=== PATIENT | female | born 1955 | race Caucasian/White ===

== ENCOUNTER → 2017-01-02 | Outpatient (CLI) | payer MEDICAID ==
[2017-01-02 07:10] LABS: CH 29.4; HCT 42.8 % (34.0-46.0); HDW 2.48; HGB 13.7 gm/dL (11.4-16.0); MCH 28.7 pg (25.0-35.0); MCHC 32.1 g/dL (31.0-37.0); MCV 89.5 fL (80.0-100.0); Mean Platelet Volume 7.9; RBC 4.78 m/uL (3.80-5.40); RDW 13.8 % (11.5-15.5); WBC 5.3 k/uL (3.8-10.6)
[2017-01-02 08:00] LABS: ALT 53 U/L (9-52); AST 36 U/L (14-36); Alkaline Phosphatase 70 U/L (38-126); Anion Gap 7 mmol/L; Blood Urea Nitrogen 15 mg/dL (7-17); Calcium 9.7 mg/dL (8.4-10.2); Carbon Dioxide 30 mmol/L (22-30); Chloride 104 mmol/L (98-107); Cholesterol 178 mg/dL (<200); Glucose 92 mg/dL (74-99); HDL Cholesterol 47 mg/dL (40-60); Non-African American GFR(MDRD) >60 (>60 ml/min/1.73 sqM); Potassium 4.6 mmol/L (3.5-5.1); Sodium 141 mmol/L (137-145); Total Protein 6.6 g/dL (6.3-8.2); Uric Acid 6.8 mg/dL (3.7-7.4)
[2017-01-02 10:26] LABS: Erythrocyte Sedimentation Rate 8 mm/hr (0-20)
== END | disposition home or self-care (01) ==
LOC: LABWHC1 06:47
PROVIDERS: ATTEND Internal Medicine
DX: I10 Essential (primary) hypertension (principal)
CPT/HCPCS: 36415; 80053; 80061; 82306; 84443; 84550; 85027; 85652

== ENCOUNTER 2018-08-15 09:05 | Emergency (ER) | payer MEDICAID ==
--- NOTE | 2018-08-15 09:36 | ED ---
General Adult HPI - General Chief complaint: Extremity Injury, Lower Stated complaint: Fall, ankle injury Time Seen by Provider: 08/15/18 09:25 Source: patient, RN notes reviewed, old records reviewed Mode of arrival: ambulatory Limitations: no limitations - History of Present Illness Initial comments: 63-year-old female past medical history of hypertension presented for evaluation of left ankle injury. Patient states she slipped 3 days prior injuring her left ankle. No other associated trauma. She slipped on dog urine. She has had basically no pain, she has had swelling and bruising of the left ankle and was encouraged by her coworkers to present for evaluation. - Related Data Home Medications Medication Instructions Recorded Confirmed Atorvastatin Calcium [Lipitor] 10 mg PO DAILY 08/15/18 08/15/18 Metoprolol Tartrate [Lopressor] 25 mg PO BID 08/15/18 08/15/18 Allergies Allergy/AdvReac Type Severity Reaction Status Date / Time No Known Allergies Allergy Verified 08/15/18 10:00 Review of Systems ROS Statement: Those systems with pertinent positive or pertinent negative responses have been documented in the HPI. ROS Other: All systems not noted in ROS Statement are negative. Past Medical History Past Medical History: Hyperlipidemia, Hypertension History of Any Multi-Drug Resistant Organisms: None Reported Past Surgical History: Tonsillectomy Additional Past Surgical History / Comment(s): left cyst removed from breast Past Psychological History: No Psychological Hx Reported Smoking Status: Former smoker Past Alcohol Use History: None Reported Past Drug Use History: None Reported General Exam Limitations: no limitations General appearance: alert, in no apparent distress Head exam: Present: atraumatic, normocephalic Eye exam: Present: normal appearance, PERRL ENT exam: Present: normal exam Neck exam: Present: normal inspection. Absent: tenderness, meningismus Respiratory exam: Present: normal lung sounds bilaterally. Absent: respiratory distress, wheezes Cardiovascular Exam: Present: regular rate, normal rhythm GI/Abdominal exam: Present: soft. Absent: distended, tenderness, guarding Extremities exam: Present: pedal edema (Left lower extremity: Ecchymosis on the anterior left ankle, there is swelling bilaterally both medial and lateral malleolus. She has swelling in the calf to the level of the knee compared to the right lower extremity.), joint swelling, other Course Vital Signs 08/15/18 09:19 Temperature 98.2 F Pulse Rate 75 Respiratory 16 Rate Blood Pressure 144/76 O2 Sat by Pulse 98 Oximetry Procedures - Orthopedic Splinting/Casting Injury #1 Side: left Upper Extremity Immobilizer: Vikas wrap Lower Extremity Injury Location: ankle Medical Decision Making - Medical Decision Making 63-year-old female with three-day history of swelling in the left ankle status post mechanical fall. On exam there is minimal tenderness, good range of motion. There is ecchymosis and swelling throughout the ankle. She does have swelling from the ankle to the knee. Ultrasound is performed to evaluate for DVT. This is negative. X-ray is negative for fracture dislocation, there is soft tissue swelling consistent with exam. She is placed in an Vikas wrap. She will elevate the extremity, apply ice, take Motrin for pain. Disposition Clinical Impression: Ankle sprain and strain Disposition: HOME SELF-CARE Instructions (If sedation given, give patient instructions): Ankle Sprain (ED) Additional Instructions: Please elevated extremity as much as possible, apply ice, take Tylenol or Motrin if you develop pain. Is patient prescribed a controlled substance at d/c from ED?: No Referrals: Levi Tatum MD [Primary Care Provider] - 1-2 days Time of Disposition: 10:57
--- NOTE | 2018-08-15 10:12 | XR ---
EXAMINATION TYPE: XR ankle complete LT , 3 VIEWS DATE OF EXAM ORDERED: 08/15/2018 HISTORY: Pain following trauma. COMPARISON: None. FINDINGS: There is moderate soft tissue swelling about the ankle. No fracture or dislocation is seen . No joint effusion is seen. IMPRESSION: 1. NO ACUTE OSSEOUS LESION. 2. SOFT TISSUE SWELLING.
--- NOTE | 2018-08-15 10:54 | US ---
EXAMINATION TYPE: US venous doppler duplex LE LT DATE OF EXAM: 08/15/2018 10:48 AM COMPARISON: NONE CLINICAL HISTORY: Pain. Bruising and swelling at ankle. Patient states slipping on friday and [place] ting herself. No hx of blood clots. No blood thinners. Patient states she feels it is getting bett er. SIDE PERFORMED: Left TECHNIQUE: The lower extremity deep venous system is examined utilizing real time linear array sonog durga with graded compression, doppler sonography and color-flow sonography. VESSELS IMAGED: External Iliac Vein (EIV) Common Femoral Vein Deep Femoral Vein Greater Saphenous Vein * Femoral Vein Popliteal Vein Small Saphenous Vein * Proximal Calf Veins (* superficial vessels) Left Leg: Negative for DVT No popliteal fossa lesion is seen. IMPRESSION: THIS EXAMINATION IS NEGATIVE FOR DVT WITHIN THE LEFT LEG.
[2018-08-15 11:21] VITALS: BP 156/76; PULSE 76; RESP 20; TEMP 97.7
== END 2018-08-15 11:29 | disposition home or self-care (01) ==
LOC: EC 09:05
DX: S93.402A Sprain of unspecified ligament of left ankle, initial encounter (principal); S96.912A Strain of unspecified muscle and tendon at ankle and foot level, left foot, initial encounter; I10 Essential (primary) hypertension; E78.5 Hyperlipidemia, unspecified; Z79.899 Other long term (current) drug therapy; Z87.891 Personal history of nicotine dependence; W01.0XXA Fall on same level from slipping, tripping and stumbling without subsequent striking against object, initial encounter
CPT/HCPCS: 99284

== ENCOUNTER → 2019-02-19 | Outpatient (CLI) | payer MEDICAID ==
--- NOTE | 2019-02-23 13:26 | MM ---
Reason for exam: screening (asymptomatic). Last mammogram was performed 3 years ago. History: Patient is postmenopausal. Benign right US cyst aspiration of the right breast, February 07, 2010. Benign US left guided VAD of the left breast, February 07, 2010. Physical Findings: A clinical breast exam by your physician is recommended on an annual basis and results should be correlated with mammographic findings. MG Screening Mammo w CAD Bilateral CC and MLO view(s) were taken. Prior study comparison: February 09, 2016, left breast MG work up mamm w CAD LT. January 31, 2016, bilateral MG screening mammo w CAD. The breast tissue is heterogeneously dense. This may lower the sensitivity of mammography. Previous mammotome biopsy in the right and left breast. There is chronic nodularity bilaterally. No significant changes when compared with prior studies. ASSESSMENT: Benign, BI-RAD 2 RECOMMENDATION: Routine screening mammogram of both breasts in 1 year.
== END | disposition home or self-care (01) ==
LOC: RADMAMWWP 14:32
PROVIDERS: ATTEND Internal Medicine
DX: Z12.31 Encounter for screening mammogram for malignant neoplasm of breast (principal)
CPT/HCPCS: 77067

== ENCOUNTER → 2020-04-28 | Outpatient (CLI) | payer MEDICAID ==
--- NOTE | 2020-05-01 11:39 | MM ---
Reason for exam: screening (asymptomatic). Last mammogram was performed 1 year and 2 months ago. History: Patient is postmenopausal. Benign right US cyst aspiration of the right breast, February 07, 2010. Benign US left guided VAD of the left breast, February 07, 2010. Physical Findings: A clinical breast exam by your physician is recommended on an annual basis and results should be correlated with mammographic findings. MG Screening Mammo w CAD Bilateral CC and MLO view(s) were taken. Prior study comparison: February 19, 2019, bilateral MG screening mammo w CAD. February 09, 2016, left breast MG work up mamm w CAD LT. The breast tissue is heterogeneously dense. This may lower the sensitivity of mammography. Previous mammotome biopsy in the right and left breast. There is chronic nodularity bilaterally. No significant changes when compared with prior studies. ASSESSMENT: Benign, BI-RAD 2 RECOMMENDATION: Routine screening mammogram of both breasts in 1 year.
== END | disposition home or self-care (01) ==
LOC: RADMAMWWP 09:16
PROVIDERS: ATTEND Internal Medicine
DX: Z12.31 Encounter for screening mammogram for malignant neoplasm of breast (principal)
CPT/HCPCS: 77067

== ENCOUNTER → 2022-12-17 | Outpatient (CLI) | payer MEDICARE ==
--- NOTE | 2022-12-18 08:34 | MM ---
Reason for Exam: Screening (asymptomatic). Last mammogram was performed 2 year(s) and 7 month(s) ago. Patient History: Menarche at age 9. First Full-Term at age 17. Postmenopausal. 02/07/2010, Benign Core Biopsy on the left side. 02/07/2010, Benign Cyst Aspiration on the right side. Risk Values: Tegan 5 year model risk: 1.6%. NCI Lifetime model risk: 5.0%. Prior Study Comparison: 02/09/2016 Left Diagnostic Mammogram, [facility]. 02/19/2019 Bilateral Screening Mammogram, [facility]. 04/28/2020 Bilateral Screening Mammogram, [facility]. Tissue Density: The breast tissue is heterogeneously dense. This may lower the sensitivity of mammography. Findings: Analyzed By CAD. Right: Enlarging mass right upper quadrant measuring 17 x 15 mm on the MLO view posterior depth approximately 10 cm from the nipple there is a is adjacent right breast biopsy clip. Left: There is no suspicious group of microcalcifications or new suspicious mass. Overall Assessment: Incomplete: need additional imaging evaluation, BI-RAD 0 Management: Diagnostic Breast Ultrasound of the right breast. Ultrasound imaging of the right upper outer quadrant. [facility] will attempt to contact patient to return for supplemental views and ultrasound if indicated. Patient should continue monthly self-breast exams. A clinical breast exam by your physician is recommended on an annual basis. This exam should not preclude additional follow-up of suspicious palpable abnormalities. Note on Tegan scores and lifetime risk: 1. A Tegan score greater than 3% is considered moderate risk. If this is the case, consider specialist referral to assess eligibility for a risk reducing agent. 2. If overall lifetime risk for the development of breast cancer is 20% or higher, the patient may qualify for future screening with alternating mammogram and breast MRI. Electronically signed and approved by: Evan Hummel DO
== END | disposition home or self-care (01) ==
LOC: RADMAMWWP 07:40
PROVIDERS: ATTEND Internal Medicine
DX: Z12.31 Encounter for screening mammogram for malignant neoplasm of breast (principal); Z78.0 Asymptomatic menopausal state
CPT/HCPCS: 77067

== ENCOUNTER → 2022-12-23 | Outpatient (CLI) | payer MEDICARE ==
--- NOTE | 2022-12-23 09:46 | USB ---
Reason for Exam: Additional evaluation requested from abnormal screening. Patient History: Menarche at age 9. First Full-Term at age 17. Postmenopausal. 02/07/2010, Benign Core Biopsy on the left side. 02/07/2010, Benign Cyst Aspiration on the right side. Risk Values: Tegan 5 year model risk: 1.6%. NCI Lifetime model risk: 5.0%. Technique: Method: Targeted. Prior Study Comparison: 02/19/2019 Bilateral Screening Mammogram, [facility]. 04/28/2020 Bilateral Screening Mammogram, [facility]. 12/17/2022 Bilateral MG screening mammo w CAD, [facility]. Findings: The upper outer quadrant of the right breast, the axilla of the right breast and the retroareolar of the right breast were scanned. There is a 1.7 x 0.7 x 1.7 cm hypoechoic area 10:00 position 10 cm from nipple. This appears to correspond to the mammographic findings.. Overall Assessment: Probably benign, BI-RAD 3 Management: Diagnostic Breast Ultrasound of the right breast in 6 months. A clinical breast exam by your physician is recommended on an annual basis and results should be correlated with mammographic findings. This exam should not preclude additional follow-up of suspicious palpable abnormalities. Results were given to the patient verbally at the time of exam. Electronically signed and approved by: Umesh Monsivais D.O. Radiologis
== END | disposition home or self-care (01) ==
LOC: RADUSWWP 08:47
PROVIDERS: ATTEND Internal Medicine
DX: R92.8 Other abnormal and inconclusive findings on diagnostic imaging of breast (principal); Z78.0 Asymptomatic menopausal state

== ENCOUNTER → 2024-06-25 | Outpatient (CLI) | payer MEDICARE ==
--- NOTE | 2024-06-25 11:42 | MM ---
Reason for Exam: Follow-up at short interval from prior study. Last mammogram was performed 1 year(s) and 7 month(s) ago. Patient History: Menarche at age 9. First Full-Term at age 17. Postmenopausal. 02/07/2010, Benign Core Biopsy on the left side. 02/07/2010, Benign Cyst Aspiration on the right side. Risk Values: Tegan 5 year model risk: 1.6%. NCI Lifetime model risk: 4.5%. Prior Study Comparison: 02/09/2016 Left Diagnostic Mammogram, [facility]. 02/19/2019 Bilateral Screening Mammogram, [facility]. 04/28/2020 Bilateral Screening Mammogram, [facility]. 12/17/2022 Bilateral MG screening mammo w CAD, [facility]. Tissue Density: The breasts are heterogeneously dense, which may obscure small masses. Findings: Analyzed By CAD. Right breast clip present. Asymmetry right upper outer quadrant appears smaller on today's exam located posterior to the right breast biopsy clip in the lateral aspect posterior depth approximately 12.2 cm from the nipple Left breast biopsy clip present. New or worrisome calcifications. No new masses identified. Overall Assessment: Incomplete: need additional imaging evaluation, BI-RAD 0 Management: Diagnostic Breast Ultrasound of the right breast. Results were given to the patient verbally at the time of exam. Patient should continue monthly self-breast exams. A clinical breast exam by your physician is recommended on an annual basis. This exam should not preclude additional follow-up of suspicious palpable abnormalities. Note on Tegan scores and lifetime risk: 1. A Tegan score greater than 3% is considered moderate risk. If this is the case, consider specialist referral to assess eligibility for a risk reducing agent. 2. If overall lifetime risk for the development of breast cancer is 20% or higher, the patient may qualify for future screening with alternating mammogram and breast MRI. [facility], , 06/25/2024 11:39 AM. Electronically signed and approved by: Evan Hummel DO
--- NOTE | 2024-06-25 11:59 | USB ---
Reason for Exam: Follow-up at short interval from prior study. Patient History: Menarche at age 9. First Full-Term at age 17. Postmenopausal. 02/07/2010, Benign Core Biopsy on the left side. 02/07/2010, Benign Cyst Aspiration on the right side. Risk Values: Tegan 5 year model risk: 1.6%. NCI Lifetime model risk: 4.5%. Technique: Method: Targeted. Doppler: Color. Patient Position: Supine. Prior Study Comparison: 02/19/2019 Bilateral Screening Mammogram, [facility]. 04/28/2020 Bilateral Screening Mammogram, [facility]. 12/17/2022 Bilateral MG screening mammo w CAD, [facility]. Findings: The upper outer quadrant of the right breast, the axilla of the right breast and the retroareolar of the right breast were scanned. Technique utilized:US breast limited RT Image; Ultrasound imaging of: All 4 quadrants, the retroareolar region and axilla. Interval decrease in right breast cyst at 10:00 10 cm the nipple measuring 12 x 7 x 11 mm previously 17 x 7 x 17 mm. Findings compatible with simple cyst. No evidence for organizing fluid collection or mass. Overall Assessment: Benign, BI-RAD 2 Management: Screening Mammogram of both breasts in 1 year. A clinical breast exam by your physician is recommended on an annual basis and results should be correlated with mammographic findings. This exam should not preclude additional follow-up of suspicious palpable abnormalities. Results were given to the patient verbally at the time of exam. [facility], , 06/25/2024 11:56 AM. Electronically signed and approved by: Evan Hummel DO
== END | disposition home or self-care (01) ==
LOC: RADMAMWWP 11:02
PROVIDERS: ATTEND Internal Medicine
DX: R92.8 Other abnormal and inconclusive findings on diagnostic imaging of breast (principal); R92.333 Mammographic heterogeneous density, bilateral breasts; N60.01 Solitary cyst of right breast; Z78.0 Asymptomatic menopausal state
CPT/HCPCS: 77062; 77066